=== PATIENT | female | born 1965 | race Caucasian/White ===

== ENCOUNTER → 2016-04-05 | Outpatient (CLI) | payer BC ==
[~2016-04-05] MED LIST: ALBUAER19 INH; ALPR-411 PO; BUTA1CAP17 PO; CALC8.5C PO; CLR10 PO; CNC/18 PO; DICL1GEL28 TOP; ETOD500T95 PO; FLVHFA44 INH; GADAVIST IV PRN; HYDR-4079 PO; HYDR25TA4 PO; MELA1TAB12 PO; MILN50TA PO; MONT1TAB3 PO; MULT-506 PO; NITR100C4 PO; NXM/40 PO; POLY335025 PO; PREG100C PO; PROB1CAP32 PO; PSEU60TA52 PO; RANI1TAB77 PO; RTL20 PO; SPIR25TA PO; SUMA6KIT INJ; TAMO20TA47 PO; TIZA4CAP PO; TOPI100T34 PO; TRAM-10 PO; VENL150C56 PO; ZNTT/150 PO
--- NOTE | 2016-04-08 15:00 | MAMMOGRAPHY REPORT ---
BREAST MRI OF BOTH BREASTS : 04/05/2016 CLINICAL HISTORY: History of right breast cancer status post bilateral mastectomies with implant rec onstruction. COMPARISON: Comparison is made to exams dated: 01/18/2015 MRI biopsy, 01/11/2015 mammogram, 5 mammogram, 12/09/2014 mammogram, 11/29/2013 mammogram, and 11/06/2012 mammogram - [facility]. Abdominal ultrasound dated 02/23/2016. Technique: The patient was placed prone in a dedicated breast imaging coil. Precontrast axial T1-we ighted, axial and sagittal T2-weighted fat saturation, axial and sagittal T2 STIR saturation, and ax ial T1-weighted fat saturation images were obtained. After the administration of 7 mL of Gadavist IV contrast, sequential T1-weighted fat saturation images were obtained. Subtraction images were obta ined of the dynamic contrast enhanced sequences, and 3-D reformations were performed. The Shake was used for kinetic analysis. Findings: There is no background parenchymal enhancement bilaterally. There are postsurgical changes from michael ateral mastectomy with silicone implant reconstruction. Bilateral silicone implants are intact with out evidence of intracapsular or extracapsular rupture. There are no suspicious enhancing masses or other suspicious enhancement within either reconstructed breast. There is no evidence of axillary adenopathy. The chest wall structures are negative. There is a 3. 2 x 4 cm circumscribed homogeneously T2 hyperintense, nonenhancing mass within the lateral aspect of the liver (series 8 image 46 and series 901 image 73). This is not well evaluated on this exam, bu t likely corresponds with one of the echogenic lesions seen on the 03/04/2016 ultrasound exam which had the ultrasound appearance of a hemangioma. IMPRESSION: ACR BI-RADS CATEGORY 2: BENIGN Status post bilateral mastectomy with silicone implant reconstruction. No MRI evidence of malignanc y in either reconstructed breast. Luciana Marquez M.D. /:04/06/2016 09:56:03 Branch Rental Manager: information technology auditor, [facility] letter sent: Normal 1/2 BI-RADS Code: ACR BI-RADS Category 2: Benign
== END | disposition home or self-care (01) ==
LOC: C.MRI 10:06
PROVIDERS: ATTEND Internal Medicine Hematology
DX: C50.411 Malignant neoplasm of upper-outer quadrant of right female breast (principal); Z98.82 Breast implant status

== ENCOUNTER → 2016-05-09 | Day surgery (SDC) | payer BC ==
[~2016-05-09] VITALS: Ht 172.7 cm; Wt 66.3 kg
[~2016-05-09] MED LIST changes: -GADAVIST IV PRN; -TAMO20TA47 PO
[2016-05-09 12:23] VITALS: Ht 172.7 cm; Wt 66.3 kg
[2016-05-09 12:27] VITALS: BP 104/63; PULSE 108
[2016-05-09 13:30] VITALS: BP 97/52; PULSE 87; O2SAT 98
--- NOTE | 2016-05-09 16:56 | OPERATIVE REPORT ---
DATE OF OPERATION: 05/09/2016 INDICATIONS FOR TILT TESTING: Orthostatic symptoms. HISTORY OF PRESENT ILLNESS: This is a 51-year-old woman who has a history of fibromyalgia, migraine headaches and intermittent postural lightheadedness and near syncope. She may have had a syncopal event several years ago. She is brought to the laboratory for tilt testing. DESCRIPTION OF PROCEDURE: After obtaining informed consent for the procedure, she was placed on the tilt test table and remained there for 15 minutes. At the end of that equilibration time, the head of the table was elevated to a 70 degree upright tilt. She remained there are only for about 3 minutes before becoming very symptomatic and the table was placed supine. During the tilt test, continuous pulse oximetry and electrocardiographic recordings were made, noninvasive blood pressure recordings were performed at intervals. FINDINGS: After the 15-minute equilibration period, her baseline blood pressure supine was 104/68, heart rate 89 and oxygen saturation 100%. Immediately on obtaining an upright tilt position, her blood pressure was 67/54, heart rate was 103 and pulse oximetry was 100%. After 1 minute, her blood pressure was 74/57, her heart rate was 119 and oxygen saturation was 100. She was feeling short of breath and having palpitations. Shortly thereafter, her symptoms became much worse and she felt as though she was going to pass out; therefore the head of the table was placed supine. Of note, the blood pressure could not easily be obtained at that point. Immediately on obtaining the supine position, the blood pressure was 124/88, heart rate was 86 and oxygen saturation 100%. IMPRESSION: Orthostatic hypotension with an immediate drop of nearly 40 mmHg systolic and a rebound of about 50 mmHg systolic when placed back supine. The heart rate also increased by about 30 beats per minute between new supine heart rate of 89 and her 1 minute heart rate of 119, her heart rate dropped back to 86 beats per minute when being placed supine. AMI
== END | disposition home or self-care (01) ==
LOC: C.CATH 12:06
PROVIDERS: ATTEND Internal Medicine Cardiovascular Disease
DX: R55 Syncope and collapse (principal); I95.1 Orthostatic hypotension; M79.7 Fibromyalgia; G43.909 Migraine, unspecified, not intractable, without status migrainosus

== ENCOUNTER → 2016-05-30 | Day surgery (SDC) | payer BC ==
[2016-05-16 15:13] VITALS: Ht 172.7 cm; Wt 65.9 kg
[~2016-05-30] VITALS: Ht 172.7 cm; Wt 65.9 kg
[~2016-05-30] MED LIST changes: +LIDOCAINE HCL 2% 2 ML VIAL (20MG/ML) ONE; -NITR100C4 PO; +PROPOFOL IV EMULSION 10 MG/ML 20 ML VIAL IV ONE
--- NOTE | 2016-05-30 15:53 | Endo History and Physical ---
History & Physical Date of Service: May 30, 2016. Chief Complaint: rectal bleeding Referring Physician: Dr. Ingrid Blanchard History of Present Illness 51 yo CF who presents for Colonoscopy secondary to rectal bleeding. Past Medical History Asthma, Anxiety, Reflux, Cancer, Depression Past Surgical History Hx Cardiac Surgery: No Hx Internal Defibrillator: No Hx Pacemaker: No Hx Abdominal Surgery: Yes (DERMOID CYST REMOVAL FROM RT OVARY) Hx of Implantable Prosthesis: Yes (BLT BREAST IMPLANTS) Hx Post-Op Nausea and Vomiting: No Hx Cancer Surgery: Yes (BLT MASTECTOMY WITH IMPLANT BASED RECONSTRUCTION) Hx Thoracic Surgery: No Hx Orthopedic: Yes (LOW BACK SURGERY S1-L3 REPLACED) Hx Urinary Tract Surgery: No Family History Colon CA, Polyp Social History Smoking Status: Never Smoker Hx Substance Use: No Hx Alcohol Use: No Allergies Coded Allergies: Dried Fruit (Verified Allergy, Mild, R/T SULFitES-MIGRAINES,NAUSEA AND VOMITING, 05/16/16) Latex1 -Allergic Contact Dermititis (Verified Allergy, Mild, SKIN IRRITATION, 05/16/16) Sulfites (Verified Allergy, Mild, MIGRAINES, N/V, FLUID RETENTION, 05/16/16) ALL VINEGARS Vinegar (Verified Allergy, Unknown, ALLERGY TO BALSAMIC VINEGAR-SULFITES- MIGRAINES,N AND V, 05/16/16) Sulfa Antibiotics (Verified Adverse Reaction, Intermediate, Acute Kidney Failure, 05/16/16) "SULFA = claims caused kidney issues=beginning of failure" Current Medications Reported Home Medications Medications Dose Route/Sig Max Daily Dose Days Date Category Dose Instructions Topamax (Topiramate) 100 Mg Tab 2 Tabs PO BID 05/16/16 Reported Nexium (Esomeprazole Magnesium) 40 Mg Capcr 40 Mg PO QAM 02/26/16 Reported Ritalin (Methylphenidate HCl) 20 Mg Tab 20 Mg PO BID 01/16/16 Reported Xanax (Alprazolam) 0.5 Mg Tab 0.5-1 Mg PO BID PRN 01/16/16 Reported Zantac (Ranitidine HCl) 150 Mg Tab 300 Mg PO HS 11/06/15 Reported Effexor Extended Rel (Venlafaxine Hcl) 150 Mg Cap 150 Mg PO BID 06/21/15 Reported Ranitidine [address] (Ranitidine HCl) 150 Mg Tab 150 Mg PO QAM 06/21/15 Reported Pseudoephedrine Hcl 60 Mg Tab 120 Mg PO DAILY PRN 03/02/15 Reported [place] 10MG/325MG (Acetaminophen/Hydrocodone Bitart) Tab 1 Tab PO DAILY PRN 03/02/15 Reported PRN PAIN Etodolac 500 Mg Tab 1 Tab PO BID 03/02/15 Reported Gnp Melatonin Maximum Str (Melatonin) 5 Mg Tab 5 Mg PO HS 01/30/15 Reported Lyrica (Pregabalin) 100 Mg Cap 100 Mg PO TID 01/30/15 Reported Viactiv (Calcium W/ Vitamins D & K) 1 Chw Chw 1 Tab PO BID 12/27/14 Reported Hctz (Hydrochlorothiazide) 25 Mg Tab 25 Mg PO QPM PRN 12/27/14 Reported Fioricet (Sznctsysyt-Jmwfbvwrcvemv-Kswtg) 1 Cap Cap 1-2 Tab PO Q4 PRN 12/27/14 Reported DOSE-50/325/40 MG-NO MORE THAN 3 DAYS PER WEEK Flovent Hfa (Fluticasone Propionate) 120 Puffs/5280 Mcg Aero 2 Puffs INH BID PRN 12/27/14 Reported Voltaren 1% Top Gel (Diclofenac Sodium) Gel 1 Appln TOP QID PRN 10/20/13 Reported Miralax (Polyethylene Glycol 3350) 1 Pow Pow 1 Dose PO TID 10/07/13 Reported USUALLY USES 1/3 A DOSE TID Singulair (Montelukast Sodium) 10 Mg Tab 10 Mg PO QPM 10/06/13 Reported Claritin (Loratadine) 10 Mg Tab 10 Mg PO QAM PRN 10/06/13 Reported Aldactone (Spironolactone) 25 Mg Tab 50 Mg PO QAM PRN 10/05/13 Reported Probiotic Colon Support (Probiotic Product) 1 Cap Cap 1 Tab PO BID 03/31/13 Reported Ventolin Inhaler (Albuterol) Aers 2 Puffs INH QID PRN 12/08/12 Reported Ultram (Tramadol HCl) 50 Mg Tab 1-2 Tabs PO TID PRN 04/16/12 Reported Zanaflex (Tizanidine HCl) 4 Mg Cap 4 Mg PO TID PRN 12/11/11 Reported Imitrex Statdose (Sumatriptan Succinate) 6 Mg/0.5 Ml Inj 0.5 Ml INJ PRN PRN 11/11/11 Reported Multivitamin (Multivitamins) Tab 1 Tab PO QAM 03/25/08 Reported Vital Signs Weight (Kilograms): 65.91 Height (Feet): 5 Height (Inches): 8 Date Time Temp Pulse Resp B/P Pulse Ox O2 Delivery O2 Flow Rate FiO2 05/30/16 15:32 37 91 20 111/62 100 Room Air Physical Exam General Appearance: WD/WN, no apparent distress Respiratory/Chest: Auscultation: breath sounds normal Cardiovascular: Heart Auscultation: RRR Abdomen: Bowel Sounds: normal Inspection & Palpation: soft, non-distended, no tenderness, guarding & rebound Assessment and Plan Assessment: 51 yo CF who presents for Colonoscopy secondary to rectal bleeding. Plan: Proceed with Colonoscopy.
--- NOTE | 2016-05-30 16:37 | Discharge Instructions ---
Endoscopy Patient Instructions Date / Procedure(s) Performed May 30, 2016. Colonoscopy Allergy Information Coded Allergies: Dried Fruit (Verified Allergy, Mild, R/T SULFitES-MIGRAINES,NAUSEA AND VOMITING, 05/16/16) Latex1 -Allergic Contact Dermititis (Verified Allergy, Mild, SKIN IRRITATION, 05/16/16) Sulfites (Verified Allergy, Mild, MIGRAINES, N/V, FLUID RETENTION, 05/16/16) ALL VINEGARS Vinegar (Verified Allergy, Unknown, ALLERGY TO BALSAMIC VINEGAR-SULFITES- MIGRAINES,N AND V, 05/16/16) Sulfa Antibiotics (Verified Adverse Reaction, Intermediate, Acute Kidney Failure, 05/16/16) "SULFA = claims caused kidney issues=beginning of failure" Discharge Date / Findings May 30, 2016. Melanosis coli Internal hemorrhoids Medication Instructions OK to resume all medications today as prescribed. Reported Home Medications Medications Dose Route/Sig Max Daily Dose Days Date Category Dose Instructions Topamax (Topiramate) 100 Mg Tab 2 Tabs PO BID 05/16/16 Reported Nexium (Esomeprazole Magnesium) 40 Mg Capcr 40 Mg PO QAM 02/26/16 Reported Ritalin (Methylphenidate HCl) 20 Mg Tab 20 Mg PO BID 01/16/16 Reported Xanax (Alprazolam) 0.5 Mg Tab 0.5-1 Mg PO BID PRN 01/16/16 Reported Zantac (Ranitidine HCl) 150 Mg Tab 300 Mg PO HS 11/06/15 Reported Effexor Extended Rel (Venlafaxine Hcl) 150 Mg Cap 150 Mg PO BID 06/21/15 Reported Ranitidine [address] (Ranitidine HCl) 150 Mg Tab 150 Mg PO QAM 06/21/15 Reported Pseudoephedrine Hcl 60 Mg Tab 120 Mg PO DAILY PRN 03/02/15 Reported [place] 10MG/325MG (Acetaminophen/Hydrocodone Bitart) Tab 1 Tab PO DAILY PRN 03/02/15 Reported PRN PAIN Etodolac 500 Mg Tab 1 Tab PO BID 03/02/15 Reported Gnp Melatonin Maximum Str (Melatonin) 5 Mg Tab 5 Mg PO HS 01/30/15 Reported Lyrica (Pregabalin) 100 Mg Cap 100 Mg PO TID 01/30/15 Reported Viactiv (Calcium W/ Vitamins D & K) 1 Chw Chw 1 Tab PO BID 12/27/14 Reported Hctz (Hydrochlorothiazide) 25 Mg Tab 25 Mg PO QPM PRN 12/27/14 Reported Fioricet (Mgnqrthwkr-Hcmvbsdiaslkr-Soguo) 1 Cap Cap 1-2 Tab PO Q4 PRN 12/27/14 Reported DOSE-50/325/40 MG-NO MORE THAN 3 DAYS PER WEEK Flovent Hfa (Fluticasone Propionate) 120 Puffs/5280 Mcg Aero 2 Puffs INH BID PRN 12/27/14 Reported Voltaren 1% Top Gel (Diclofenac Sodium) Gel 1 Appln TOP QID PRN 10/20/13 Reported Miralax (Polyethylene Glycol 3350) 1 Pow Pow 1 Dose PO TID 10/07/13 Reported USUALLY USES 1/3 A DOSE TID Singulair (Montelukast Sodium) 10 Mg Tab 10 Mg PO QPM 10/06/13 Reported Claritin (Loratadine) 10 Mg Tab 10 Mg PO QAM PRN 10/06/13 Reported Aldactone (Spironolactone) 25 Mg Tab 50 Mg PO QAM PRN 10/05/13 Reported Probiotic Colon Support (Probiotic Product) 1 Cap Cap 1 Tab PO BID 03/31/13 Reported Ventolin Inhaler (Albuterol) Aers 2 Puffs INH QID PRN 12/08/12 Reported Ultram (Tramadol HCl) 50 Mg Tab 1-2 Tabs PO TID PRN 04/16/12 Reported Zanaflex (Tizanidine HCl) 4 Mg Cap 4 Mg PO TID PRN 12/11/11 Reported Imitrex Statdose (Sumatriptan Succinate) 6 Mg/0.5 Ml Inj 0.5 Ml INJ PRN PRN 11/11/11 Reported Multivitamin (Multivitamins) Tab 1 Tab PO QAM 03/25/08 Reported Provider Instructions Activity Restrictions - No exercising or heavy lifting for 24 hours. - Do not drink alcohol the day of the procedure. - Do not drive a car or operate machinery until the day after the procedure. - Do not make any important decisions or sign important papers in 24 hours after the procedure. Following Day: - Return to full activity which may include returning to work/school. Diet Start your diet with liquids and light foods (jello, soup, juice, toast). Then eat your usual diet if not nauseated. Treatment For Common After Affects For mild abdominal pain, bloating, or excessive gas: - Rest - Eat lightly - Lie on right side Follow-Up Information Follow-up with Dr. Ingrid Blanchard as scheduled Anesthesia Information What You Should Know You have had a procedure that required some medicine to reduce anxiety and discomfort. This treatment is called moderate sedation. After receiving the treatment, you may be sleepy, but you will be able to breathe on your own. The effects of the treatment may last for several hours. Follow these instructions along with Activity/Diet recommendations noted above: * Do NOT do anything where dizziness or clumsiness would be dangerous. * Rest quietly at home today, then you can be up and about tomorrow. * Have a responsible person stay with you the rest of today. * You may have had an I.V. today. If so, you may take the dressing off later today. Recommendations Call your doctor if: * Trouble breathing * Continuous vomiting for more than 24 hours * Temperature above 101 degrees * Severe abdominal pain or bloating * Pain not relieved by pain medicine ordered * There is increased drainage or redness from any incision * A large amount of rectal bleeding greater than 2-3 tablespoons. (If you had a polyp/s removed or have hemorrhoids, a small amount of blood - from the rectum is to be expected.) * You have any unanswered questions or concerns. IN THE EVENT OF A SERIOUS EMERGENCY, GO TO THE NEAREST EMERGENCY ROOM Your discharge instructions were prepared by provider Geovani Kumar. Patient Instructions Signature Page Nanci Witt Patient (or Guardian) Signature/Date: I have read and understand the instructions given to me by my caregivers. Caregiver/RN/Doctor Signature/Date: The above-named patient and/or guardian has received patient instructions on this date. + Original Patient Signature Page (only) stays with chart. Please make copy for patient.
--- NOTE | 2016-05-30 16:57 | GI REPORT ---
Procedure Date: 05/30/2016 3:49 PM Procedure: Colonoscopy Indications: Rectal bleeding Medicines: Monitored Anesthesia Care Complications: No immediate complications. Estimated Blood Loss: Estimated blood loss: none. Procedure: Pre-Anesthesia Assessment: - Prior to the procedure, a History and Physical was performed, and patient medications and allergies were reviewed. The patient's tolerance of previous anesthesia was also reviewed. The risks and benefits of the procedure and the sedation options and risks were discussed with the patient. All questions were answered, and informed consent was obtained. Prior Anticoagulants: The patient has taken no previous anticoagulant or antiplatelet agents. ASA Grade Assessment: II - A patient with mild systemic disease. After reviewing the risks and benefits, the patient was deemed in satisfactory condition to undergo the procedure. After I obtained informed consent, the scope was passed under direct vision. Throughout the procedure, the patient's blood pressure, pulse, and oxygen saturations were monitored continuously. The scope was introduced through the anus and advanced to the terminal ileum. The colonoscopy was performed without difficulty. The patient tolerated the procedure well. The quality of the bowel preparation was good. The terminal ileum, ileocecal valve, appendiceal orifice, and rectum were photographed. Findings: A scattered area of mild melanosis was found in the entire colon. Non-bleeding internal hemorrhoids were found during retroflexion. The hemorrhoids were small. Impression: - Melanosis in the colon. - Non-bleeding internal hemorrhoids. - No specimens collected. Recommendation: - Resume previous diet. - Continue present medications. - Repeat colonoscopy in 10 years for surveillance. - Return to primary care physician as previously scheduled. Geovani Kumar, 05/30/2016 4:57:11 PM This report has been signed electronically. Note Initiated On: 05/30/2016 3:49 PM I attest to the content of the Intraoperative Record and orders documented therein, exceptions below
[2016-05-30 17:04] VITALS: BP 105/62; PULSE 82; O2SAT 100
--- NOTE | 2016-05-30 17:13 | Anesthesiology Progress Note ---
Anesthesia Post Op Note Date & Time May 30, 2016 at 17:13 Vital Signs Pain Intensity: 0 Vital Signs Past 12 Hours Date Time Temp Pulse Resp B/P Pulse Ox O2 Delivery O2 Flow Rate FiO2 05/30/16 17:04 82 18 105/62 100 Room Air 05/30/16 16:56 82 18 85/56 100 Room Air 05/30/16 16:41 90 16 98/57 100 Room Air 05/30/16 16:32 88 16 98/54 100 Room Air 05/30/16 15:32 37 91 20 111/62 100 Room Air Notes Mental Status: alert / awake / arousable, participated in evaluation Pt Amnestic to Procedure: Yes Nausea / Vomiting: adequately controlled Pain: adequately controlled Airway Patency, RR, SpO2: stable & adequate BP & HR: stable & adequate Hydration State: stable & adequate Anesthetic Complications: no major complications apparent
== END | disposition home or self-care (01) ==
LOC: C.GI 14:26
PROVIDERS: ATTEND Internal Medicine
DX: K62.5 Hemorrhage of anus and rectum (principal); K63.89 Other specified diseases of intestine; K64.8 Other hemorrhoids; K21.9 Gastro-esophageal reflux disease without esophagitis; Z80.0 Family history of malignant neoplasm of digestive organs; J45.909 Unspecified asthma, uncomplicated; F41.9 Anxiety disorder, unspecified; F32.9 Major depressive disorder, single episode, unspecified; Z88.2 Allergy status to sulfonamides; Z88.8 Allergy status to other drugs, medicaments and biological substances; Z90.10 Acquired absence of unspecified breast and nipple

== ENCOUNTER → 2016-06-14 | Outpatient (CLI) | payer BC ==
[~2016-06-14] MED LIST changes: +CETI10TA84 PO; +DULO60CA44 PO; +FEXO1TAB49 PO; -LIDOCAINE HCL 2% 2 ML VIAL (20MG/ML) ONE; -PROPOFOL IV EMULSION 10 MG/ML 20 ML VIAL IV ONE; +VNTHFA/IN INH
[2016-06-14 18:20] LABS: BLOOD UREA NITROGEN 16 mg/dl (7-18); BUN/CREATININE RATIO 21.2 (10-20); CALCIUM 8.6 mg/dl (8.5-10.1); CARBON DIOXIDE 31 mmol/L (21-32); CHLORIDE 104 mmol/L (98-107); CREATININE 0.76 mg/dl (0.60-1.20); GLUCOSE 102 mg/dl (70-99); POTASSIUM 3.6 mmol/L (3.5-5.1); SODIUM 140 mmol/L (136-145)
[2016-06-14 18:33] LABS: THYROID STIMULATING HORMONE 1.8 uIu/ml (0.300-4.500)
== END | disposition home or self-care (01) ==
LOC: C.LAB1850 16:08
PROVIDERS: ATTEND Family Medicine
DX: F32.9 Major depressive disorder, single episode, unspecified (principal); R53.83 Other fatigue

== ENCOUNTER → 2016-08-15 | Outpatient (CLI) | payer BC ==
[~2016-08-15] MED LIST changes: -RTL20 PO
== END | disposition home or self-care (01) ==
LOC: C.PAPS 09:43
PROVIDERS: ATTEND Obstetrics & Gynecology
DX: Z01.419 Encounter for gynecological examination (general) (routine) without abnormal findings (principal); Z11.51 Encounter for screening for human papillomavirus (HPV)

== ENCOUNTER → 2016-10-08 | Outpatient (CLI) | payer BC ==
[~2016-10-08] MED LIST changes: -CETI10TA84 PO; -DULO60CA44 PO; -FEXO1TAB49 PO; -VNTHFA/IN INH
[2016-10-08 16:48] LABS: BASO % 0.6 %; BASO ABS # 0.02 K/uL (0-0.2); COMPLETE YES; EOS % 0.6 %; HEMATOCRIT 39.5 % (37-47); LYMPH % 34.1 %; LYMPH ABS # 1.23 K/uL (1.2-3.4); MEAN CORPUSCULAR HEMOGLOBIN 28.7 pg (25-34); MEAN CORPUSCULAR HGB CONC 32.7 g/dl (32-36); MONO % 11.4 %; NEUT % 53.3 %; PLATELET COUNT 235 K/uL (130-400); RED BLOOD COUNT 4.49 M/uL (4.2-5.4); WHITE BLOOD COUNT 3.61 K/uL (4.8-10.8)
[2016-10-08 17:14] LABS: ALT/SGPT 25 U/L (12-78); BLOOD UREA NITROGEN 15 mg/dl (7-18); BUN/CREATININE RATIO 17.5 (10-20); CARBON DIOXIDE 29 mmol/L (21-32); CHLORIDE 104 mmol/L (98-107); CREATININE 0.88 mg/dl (0.60-1.20); GLUCOSE 97 mg/dl (70-99); POTASSIUM 3.1 mmol/L (3.5-5.1); SODIUM 140 mmol/L (136-145)
[2016-10-08 17:25] LABS: ALB/GLOB RATIO 1.2 (0.9-2); ALKALINE PHOSPHATASE 55 U/L (45-117); AST/SGOT 18 U/L (15-37)
== END | disposition home or self-care (01) ==
LOC: C.LABBC 15:32
PROVIDERS: ATTEND Psychiatry & Neurology Neurology
DX: C50.911 Malignant neoplasm of unspecified site of right female breast (principal)

== ENCOUNTER 2017-02-12 18:13 | Emergency (ER) | payer BC ==
[~2017-02-12] VITALS: Ht 172.7 cm; Wt 68.2 kg
[~2017-02-12 18:13] MED LIST changes: +CETI10TA84 PO; -CLR10 PO; +DULO60CA44 PO; +FEXO1TAB49 PO; -MILN50TA PO; -VENL150C56 PO
[2017-02-12 18:22] VITALS: BP 109/75; PULSE 84; TEMP 36.4; O2SAT 100; Ht 172.7 cm; Wt 68.2 kg
[2017-02-12] MEDS ORDERED: VNTHFA/IN INH (18:56)
[2017-02-12] MEDS ORDERED: TRAMADOL HCL 50 MG TAB PO STA (19:20)
[2017-02-12] MEDS ORDERED: ACETAMINOPHEN 500 MG TAB PO STA (19:20)
[2017-02-12] MEDS ORDERED: DIPHTHERIA/TETANUS/PERTUSSIS 0.5 ML SYR/VIAL IM. ONE (20:00)
--- NOTE | 2017-02-12 20:00 | DIAGNOSTIC IMAGING REPORT ---
HEAD WITHOUT CONTRAST (CT) CLINICAL HISTORY: 51 years-old Female with CHI/R facial/neck pain. Acute posttraumatic head pain TECHNIQUE: Multiple axial CT images of the head were obtained without contrast. A dose lowering technique was utilized adhering to the principles of ALARA. CT DOSE: 916.45 mGy.cm COMPARISON: CT cervical spine and maxillofacial study of same day. FINDINGS: No acute intracranial hemorrhage, midline shift, mass, large territorial ischemia or abnormal extra-axial collection. The calvarium is intact. The paranasal sinuses, mastoid air cells, and middle ear cavities are clear. IMPRESSION: No acute intracranial abnormality. The above report was generated using voice recognition software. It may contain grammatical, syntax or spelling errors. Electronically signed by: Singh Pérez M.D. 02/12/2017 7:59 PM Dictated Date/Time: 02/12/2017 7:57 PM
--- NOTE | 2017-02-12 20:06 | DIAGNOSTIC IMAGING REPORT ---
CERVICAL SPINE W/O CLINICAL HISTORY: 51 years-old Female with CHI/R facial/neck pain. Acute neck and facial pain status post fall COMPARISON: CT head and maxillofacial study of same day. TECHNIQUE: Multiple axial CT images of the cervical spine were obtained without contrast. A dose lowering technique was utilized adhering to the principles of ALARA. FINDINGS: Mastoid air cells are clear. No acute cervical spine fracture or subluxation. Moderate intervertebral disc space narrowing with endplate spurring is noted at C5-C6. Mild multilevel facet arthrosis. Findings most pronounced at C2-C3 on the left and C6-C7 on the left. No high-grade central canal or foraminal narrowing identified. The soft tissues are unremarkable. No pneumothorax. Groundglass 5 x 3 mm nodule of the right lung apex is seen on image 97 series 4. IMPRESSION: 1. No acute cervical spine fracture or subluxation. 2. Moderate intervertebral disc space narrowing with endplate spurring at C5-C6. 3. 5 x 3 mm groundglass nodule of the right lung apex. This could be further evaluated with a nonemergent noncontrast CT of the chest. The above report was generated using voice recognition software. It may contain grammatical, syntax or spelling errors. Electronically signed by: Singh Pérez M.D. 02/12/2017 8:04 PM Dictated Date/Time: 02/12/2017 8:00 PM
--- NOTE | 2017-02-12 20:10 | DIAGNOSTIC IMAGING REPORT ---
FACIAL BONES-MXILLOFAC WITHOUT CLINICAL HISTORY: 51 years-old Female presenting with CHI/R facial/neck pain. Acute facial pain status post fall COMPARISON STUDY: CT head and cervical spine studies of same day TECHNIQUE: High-resolution CT scan of the facial bones is performed. Images are reviewed in the axial, sagittal, and coronal planes. IV contrast was not administered for this examination. A dose lowering technique was utilized adhering to the principles of ALARA. FINDINGS: There is no evidence of facial bone fracture. The bony orbits are intact and the orbital contents are within normal limits. The zygomatic arches, nasal bones, and pterygoid plates are preserved. The maxilla and mandible are intact. The mastoid air cells are clear. Mild mucosal thickening of the ethmoid air cells. The imaged calvarium and upper cervical spine are within normal limits. Partially imaged brain parenchyma is within normal limits. Intervertebral disc space narrowing at C5-C6 is moderate. Mild right cheek soft tissue swelling. Groundglass nodule of the right lung apex measures 5 x 3 mm. IMPRESSION: 1. No acute facial bone fracture or dislocation. 2. Mild right cheek soft tissue swelling. The above report was generated using voice recognition software. It may contain grammatical, syntax or spelling errors. Electronically signed by: Singh Pérez M.D. 02/12/2017 8:08 PM Dictated Date/Time: 02/12/2017 8:05 PM
--- NOTE | 2017-02-12 21:12 | DIAGNOSTIC IMAGING REPORT ---
R ELBOW MIN 3 VIEWS ROUTINE HISTORY: 51 years-old Female R elbow pain acute right-sided elbow pain COMPARISON: None available TECHNIQUE: 3 views of the right elbow FINDINGS: No acute fracture, dislocation or significant degenerative changes. No opaque foreign body or large joint effusion. There is minimal soft tissue swelling along the dorsal elbow. IMPRESSION: Minimal soft tissue swelling without acute bony abnormality. The above report was generated using voice recognition software. It may contain grammatical, syntax or spelling errors. Electronically signed by: Singh Pérez M.D. 02/12/2017 9:10 PM Dictated Date/Time: 02/12/2017 9:10 PM
--- NOTE | 2017-02-13 00:09 | EMERGENCY ROOM VISIT NOTE ---
History First contact with patient: 18:59 Chief Complaint: FALL Stated Complaint: SEVERE FALL;CUTS ON FACE;POSS CONCUSSION History of Present Illness The patient is a 51 year old female who presents to the Emergency Room with complaints of injuries after she tripped over her dog and fell in her living room this evening. The patient reports that the room was dark and did not realize that her dog was laying on the floor. She is concerned mostly about an injury to the right side of her head, complaining of a headache, neck pain, facial pain, right ear pain, right shoulder, right elbow and bilateral knee pain. The patient denies any loss of consciousness. The patient initially believes that her tetanus immunization is up-to-date. She rates her discomfort a 9 out of 10. Review of Systems 10 system review was performed and was negative except for pertinent positives and negatives as indicated in history of present illness Past Medical/Surgical History Medical Problems: (1) Breast CA (2) Chronic migraine (3) Fibromyalgia (4) Irritable bowel syndrome (5) Orthostatic hypotension Surgical Problems: (1) History of breast reconstruction (2) History of mastectomy, total Family History FH: cancer FH: diabetes mellitus FH: gallbladder disease FH: heart disease FH: hypertension FH: kidney disease FH: seizures Social History Smoking Status: Never Smoker Alcohol Use: occasionally Marital Status: Housing Status: lives with family Occupation Status: unemployed Current/Historical Medications Scheduled Calcium W/ Vitamins D & K (Viactiv), 1 TAB PO BID Cetirizine (Zyrtec), 10 MG PO DAILY Duloxetine Hcl (Cymbalta), 60 MG PO BID Esomeprazole Magnesium (Nexium), 40 MG PO BID Etodolac (Etodolac), 500 MG PO BID Fexofenadine Hcl (Alice Allergy), 180 MG PO DAILY Melatonin (Gnp Melatonin Maximum Str), 5 MG PO HS Methylphenidate Hcl (Concerta), 1 TAB PO QAM Montelukast Sodium (Singulair), 10 MG PO QPM Multivitamin (Multivitamin), 1 TAB PO QAM Polyethylene Glycol 3350 (Miralax), 1 DOSE PO TID Pregabalin (Lyrica), 100 MG PO BID Probiotic Product (Probiotic Colon Support), 1 TAB PO BID Ranitidine (Zantac), 300 MG PO HS Ranitidine HCl (Ranitidine [address]), 150 MG PO QAM Topiramate (Topamax), 2 TABS PO BID Scheduled PRN Albuterol Hfa (Ventolin Hfa), 2-4 PUFFS INH Q6H PRN for SOB/Wheezing Alprazolam (Xanax), 0.5-1 MG PO BID PRN for Anxiety Qotalxwpdn-Fbhxnvsgozvhr-Rvqeg (Fioricet), 1-2 TAB PO Q4 PRN for Pain Fluticasone Propionate (Flovent Hfa), 2 PUFFS INH BID PRN for Shortness of Breath Hydrochlorothiazide (Hctz), 25 MG PO QPM PRN for FLUID RETENTION Hydrocodone/Acetaminophen 10MG/325MG ([place] 10MG/325MG), 1 TAB PO DAILY PRN for Pain Pseudoephedrine Hcl (Pseudoephedrine Hcl), 120 MG PO DAILY PRN for Nasal Congestion Spironolactone (Aldactone), 50 MG PO QAM PRN for FLUID RETENTION Sumatriptan Succinate (Imitrex Statdose), 0.5 ML INJ PRN PRN for UD Tizanidine (Zanaflex), 4 MG PO TID PRN for Muscle Spasms Tramadol (Ultram), 1-2 TABS PO TID PRN for Pain Physical Exam Vital Signs Date Time Temp Pulse Resp B/P (MAP) Pulse Ox O2 Delivery O2 Flow Rate FiO2 02/12/17 18:22 36.4 84 18 109/75 100 Room Air Physical Exam CONSTITUTIONAL: Healthy and well nourished. Alert and oriented X 3 with positive affect. GCS 15. Patient appears in mild discomfort. HEENT: Examination shows superficial abrasions to the right lateral eyebrow and ear helix. She has edema and ecchymosis of the right temporal and zygomatic region. Pupils equal, round and reactive. No subconjunctival hemorrhage, epistaxis, hemotympanum, raccoon's eyes or Stark sign. OROPHARYNX: No dental trauma or other intraoral lacerations noted. NECK: Left lateral gaze of the neck causes discomfort over the right medial scapular border. She otherwise has no focal tenderness through the central cervical spine. RESPIRATORY: Clear to auscultation bilaterally with no wheezing, crackles, rhonchi or stridor. CARDIOVASCULAR: Regular rate and rhythm with no murmurs, rubs or gallops. MUSCULOSKELETAL: Examination shows mild tenderness to palpation of the right scapula, right posterior elbow and right thumb. She otherwise has full range of motion of these areas without significant discomfort. No focal tenderness to palpation through the ribs. Examination shows superficial abrasions to bilateral anterior knees. She otherwise and relates without antalgic gait. Distal pulses are intact. INTEGUMENTARY: No rash or other significant dermatologic conditions noted. NEUROLOGIC: Upper and lower extremities are sensory intact. Medical Decision & Procedures ER Provider Diagnostic Interpretation: Noncontrast CT of the facial bones, head and cervical spine do not show any evidence for acute fractures or intracranial bleed. An incidental groundglass 5 x 3 mm right apical lung nodule is noted. My interpretation of right elbow x-rays does not show any obvious fractures or dislocation. Radiologist reports were reviewed. Medications Administered Medications (Trade) Dose Ordered Sig/Bert Route Start Time Stop Time Status Last Admin Dose Admin Tramadol HCl (Ultram Tab) 50 mg ONE STAT PO 02/12/17 19:20 02/12/17 19:23 DC 02/12/17 19:36 50 MG Acetaminophen (Tylenol Tab) 1,000 mg NOW STAT PO 02/12/17 19:20 02/12/17 19:23 DC 02/12/17 19:37 1,000 MG Diphtheria/ Pertussis/Tetanus Vacc (Adacel Inj) 0.5 ml ONCE ONCE IM. 02/12/17 20:00 02/12/17 20:01 DC 02/12/17 20:48 0.5 ML ED Course Patient history and physical exam were performed. Nurse's notes were reviewed. Vital signs were reviewed and were normal. The patient was administered Tylenol 1 g and Ultram 50 mg for pain. Noncontrast CT of the head, facial bones and cervical spine were normal. An incidental right apical 5 x 3 mm lung nodule was noted. It is noted that the patient has a history of breast cancer, status post mastectomy with reconstruction. I did encourage her to follow-up with her oncologist for radiologic comparison with prior imaging. The patient reports that she has an upcoming appointment with her oncologist. Evaluation of all wounds does not show any need for primary closure with sutures. I did encourage the patient to keep all wounds clean and covered with an antibiotic ointment until they heal. Ice as needed to areas of discomfort. Ibuprofen and Tylenol in alternating fashion for baseline pain relief. The patient reports that she does have Ultram at home that she usually takes for fibromyalgia. The patient was provided a concussion handout. She was encouraged to follow-up with her PCP as needed for further management, returning to the emergency department for any progressively worsening focal symptoms. The patient was happy with plan of care, voiced understanding of all discharge instructions, and rated her discomfort a 3 out of 10 at the conclusion of my exam. Medical Decision [place] Drug Monitoring Program Search Results: patient reviewed within database, no issues identified Head Trauma GCS Score: 15 Medication Reconcilliation Current Medication List: was personally reviewed by me Blood Pressure Screening Patient's blood pressure: Normal blood pressure Impression Primary Impression: Concussion Additional Impressions: Contusion of multiple sites Fall from slip, trip, or stumble Nodule of apex of right lung Departure Information Referrals Nellie Morataya MD (PCP) Patient Instructions [facility] Problem Qualifiers Primary Impression: Concussion Encounter type: initial encounter Loss of consciousness presence/duration: without LOC Qualified Codes: S06.0X0A - Concussion without loss of consciousness, initial encounter Additional Impressions: Fall from slip, trip, or stumble Encounter type: initial encounter Qualified Codes: W01.0XXA - Fall on same level from slipping, tripping and stumbling without subsequent striking against object, initial encounter
== END 2017-02-12 21:40 | disposition home or self-care (01) ==
LOC: C.EDB 18:16 → C.EDD 21:40
DX: S06.0X0A Concussion without loss of consciousness, initial encounter (principal); W01.0XXA Fall on same level from slipping, tripping and stumbling without subsequent striking against object, initial encounter; S00.211A Abrasion of right eyelid and periocular area, initial encounter; S00.411A Abrasion of right ear, initial encounter; S80.211A Abrasion, right knee, initial encounter; S80.212A Abrasion, left knee, initial encounter; Y92.008 Other place in unspecified non-institutional (private) residence as the place of occurrence of the external cause; R91.1 Solitary pulmonary nodule; Z85.3 Personal history of malignant neoplasm of breast; Z79.899 Other long term (current) drug therapy; M79.7 Fibromyalgia; K58.9 Irritable bowel syndrome, unspecified; Z90.10 Acquired absence of unspecified breast and nipple; Z23 Encounter for immunization; Z80.9 Family history of malignant neoplasm, unspecified; Z83.3 Family history of diabetes mellitus; Z82.49 Family history of ischemic heart disease and other diseases of the circulatory system; Z84.1 Family history of disorders of kidney and ureter; Z82.0 Family history of epilepsy and other diseases of the nervous system

== ENCOUNTER → 2017-02-18 | Outpatient (CLI) | payer BC ==
[~2017-02-18] MED LIST changes: -ALBUAER19 INH; -DICL1GEL28 TOP; +OPTIRAY 320 IV PRN; +VNTHFA/IN INH
--- NOTE | 2017-02-18 13:48 | DIAGNOSTIC IMAGING REPORT ---
CT SCAN OF THE CHEST WITH IV CONTRAST CLINICAL HISTORY: Breast cancer. Right-sided pulmonary nodule. COMPARISON STUDY: Chest radiographs dated 10/21/2014. TECHNIQUE: Following the IV administration of 93 cc of Optiray 320, CT scan of the thorax was performed from the thoracic inlet to the upper abdomen. Images are reviewed in the axial, sagittal, and coronal planes. IV contrast was administered without complication. A dose lowering technique was utilized adhering to the principles of ALARA. CT DOSE: 222.73 mGy.cm FINDINGS: Thyroid: Imaged portions of the thyroid gland are normal in size and attenuation. Thoracic aorta: The thoracic aorta is normal in caliber and demonstrates standard 3-vessel arch anatomy. No dissection is seen. Pulmonary vasculature: The pulmonary trunk is normal in caliber. There are no filling defects identified in the central pulmonary vessels to indicate pulmonary embolus. Note that this examination was not protocoled for evaluation of the pulmonary arteries. Heart: The heart is normal in size and configuration, and without pericardial effusion. Lungs and pleural spaces: A fat-containing Bochdalek hernia is seen at the left lung base. No airspace consolidation or pleural effusion is identified. Scattered calcified granulomas are observed. The trachea and central airways are clear. No concerning pulmonary lesion is identified. Mediastinum: There is no mediastinal lymphadenopathy. Tatyana: Clear. Axillae: There is no axillary lymphadenopathy. Upper abdomen: A 4 cm cyst is seen in the right lobe of the liver. There is a 5.7 cm right lobe hepatic lesion which demonstrates peripheral nodular foci of discontinuous enhancement. Although incompletely characterized, the appearance is typical for a benign hemangioma. A 3.6 cm right renal cyst is partially imaged. Skeletal structures: No lytic or blastic bony lesions are seen. There is a healed left posterior eighth rib fracture. Soft tissues: There is evidence of bilateral mastectomy with bilateral breast implants. IMPRESSION: 1. There is no evidence of intrathoracic metastatic disease. 2. The lungs are clear. No concerning pulmonary lesion is seen. 3. A 5.7 cm right hepatic lobe lesion is incompletely characterized; however, the enhancement pattern is typical for a benign hemangioma. Electronically signed by: Lacho Castro M.D. 02/18/2017 1:46 PM Dictated Date/Time: 02/18/2017 1:39 PM
== END | disposition home or self-care (01) ==
LOC: C.CTS 13:14
PROVIDERS: ATTEND Internal Medicine Hematology
DX: C50.919 Malignant neoplasm of unspecified site of unspecified female breast (principal); R91.1 Solitary pulmonary nodule; K76.9 Liver disease, unspecified

== ENCOUNTER → 2017-03-31 | Outpatient (CLI) | payer OTHER ==
[~2017-03-31] MED LIST changes: -OPTIRAY 320 IV PRN; +PSEU60TA26 PO; -PSEU60TA52 PO
--- NOTE | 2017-03-31 16:10 | DIAGNOSTIC IMAGING REPORT ---
CHEST 2 VIEWS ROUTINE HISTORY: 51 years-old Female J45.909 Asthmatic [id number] [id number] acute bronchitis COMPARISON: CT chest 02/18/2017 TECHNIQUE: PA and lateral views of the chest FINDINGS: Cardiomediastinal and hilar silhouettes are within normal limits. There is no pneumothorax, pleural effusion, focal airspace consolidation or overt pulmonary edema. Mild symmetric bilateral hyperinflation. Bones of the chest appear grossly intact. IMPRESSION: Mild hyperinflation without acute process. No lobar airspace consolidation to suggest pneumonia. The above report was generated using voice recognition software. It may contain grammatical, syntax or spelling errors. Electronically signed by: Singh Pérez M.D. 03/31/2017 4:09 PM Dictated Date/Time: 03/31/2017 4:07 PM
[2017-03-31 17:13] LABS: BASO % 0.4 %; BASO ABS # 0.02 K/uL (0-0.2); EOS % 1.1 %; EOS ABS # 0.05 K/uL (0-0.5); HEMATOCRIT 37.1 % (37-47); IG# 0.01 K/uL (0.00-0.02); LYMPH % 36.2 %; LYMPH ABS # 1.66 K/uL (1.2-3.4); MEAN CELL VOLUME 84.7 fL (80-100); MEAN CORPUSCULAR HEMOGLOBIN 27.4 pg (25-34); MEAN CORPUSCULAR HGB CONC 32.3 g/dl (32-36); MEAN PLATELET VOLUME 9.6 fL (7.4-10.4); MONO % 11.1 %; MONO ABS # 0.51 K/uL (0.11-0.59); NEUT ABS # 2.33 K/uL (1.4-6.5); PLATELET COUNT 278 K/uL (130-400); RED CELL DISTRIBUTION WIDTH CV 14.7 % (11.5-14.5); WHITE BLOOD COUNT 4.58 K/uL (4.8-10.8)
[2017-03-31 17:42] LABS: BLOOD UREA NITROGEN 14 mg/dl (7-18); CALCIUM 9.1 mg/dl (8.5-10.1); CARBON DIOXIDE 32 mmol/L (21-32); CREATININE 0.79 mg/dl (0.60-1.20); GLUCOSE 93 mg/dl (70-99); POTASSIUM 3.7 mmol/L (3.5-5.1); SODIUM 135 mmol/L (136-145)
== END | disposition home or self-care (01) ==
LOC: C.RAD1850 15:30
PROVIDERS: ATTEND Nurse Practitioner Family
DX: J45.909 Unspecified asthma, uncomplicated (principal); R04.0 Epistaxis

== ENCOUNTER 2017-04-30 14:52 | Emergency (ER) | payer OTHER ==
[~2017-04-30] VITALS: Ht 172.7 cm; Wt 68.5 kg
[~2017-04-30 14:52] MED LIST changes: +RANI150T85 PO; -ZNTT/150 PO
[2017-04-30 14:58] VITALS: TEMP 36.9; Ht 172.7 cm; Wt 68.5 kg
[2017-04-30] MEDS ORDERED: OPTIRAY 320 IV PRN (15:45)
[2017-04-30 15:51] LABS: BASO % 0.2 %; BASO ABS # 0.01 K/uL (0-0.2); EOS % 0.8 %; EOS ABS # 0.04 K/uL (0-0.5); HEMATOCRIT 37.3 % (37-47); HEMOGLOBIN 12.4 g/dL (12.0-16.0); IG# 0.01 K/uL (0.00-0.02); LYMPH % 26.4 %; MEAN CELL VOLUME 84.2 fL (80-100); MEAN CORPUSCULAR HGB CONC 33.2 g/dl (32-36); MEAN PLATELET VOLUME 9.1 fL (7.4-10.4); MONO % 12.8 %; MONO ABS # 0.68 K/uL (0.11-0.59); NEUT % 59.6 %; NEUT ABS # 3.17 K/uL (1.4-6.5); PLATELET COUNT 231 K/uL (130-400); RED CELL DISTRIBUTION WIDTH CV 15.7 % (11.5-14.5); RED CELL DISTRIBUTION WIDTH SD 48.7 fL (36.4-46.3); WHITE BLOOD COUNT 5.31 K/uL (4.8-10.8)
[2017-04-30 16:00] LABS: INR 0.9 (0.9-1.1); PTT PATIENT 21.7 SECONDS (21.0-31.0)
[2017-04-30 16:07] LABS: ALBUMIN 3.9 gm/dl (3.4-5.0); ALT/SGPT 27 U/L (12-78); BLOOD UREA NITROGEN 15 mg/dl (7-18); CALCIUM 8.7 mg/dl (8.5-10.1); CARBON DIOXIDE 29 mmol/L (21-32); CREATININE 0.99 mg/dl (0.60-1.20); GLUCOSE 95 mg/dl (70-99); POTASSIUM 2.8 mmol/L (3.5-5.1); SODIUM 136 mmol/L (136-145)
[2017-04-30] MEDS ORDERED: BCTROWC TOP (16:11)
[2017-04-30] MEDS ORDERED: CYCL0.052 TOP (16:11)
[2017-04-30 16:12] LABS: ALKALINE PHOSPHATASE 50 U/L (45-117); AST/SGOT 20 U/L (15-37); CKMB 0.6 ng/ml (0.5-3.6); TOTAL PROTEIN 7.1 gm/dl (6.4-8.2)
--- NOTE | 2017-04-30 16:43 | DIAGNOSTIC IMAGING REPORT ---
(CHEST FOR PE) ANGIO WITH CT DOSE: 180.29 mGy.cm HISTORY: Chest pain dyspnea TECHNIQUE: Multiaxial CT images of the chest were performed following the intravenous administration of contrast to evaluate the pulmonary arteries. Maximal intensity projection images were also obtained. A dose lowering technique was utilized adhering to the principles of ALARA. COMPARISON STUDY: None. FINDINGS: There is a normal caliber thoracic aorta with no evidence for dissection. There is no evidence for pulmonary embolus. No pleural effusions. No pneumothorax. The liver and spleen are unremarkable. No mediastinal or hilar lymphadenopathy. The central airways are patent. The lungs are clear. Right hepatic lobe cyst. IMPRESSION: No evidence for pulmonary embolus. Lungs are clear. The above report was generated using voice recognition software. It may contain grammatical, syntax or spelling errors. Electronically signed by: Bryan Kitchen M.D. 04/30/2017 4:41 PM Dictated Date/Time: 04/30/2017 4:39 PM
[2017-04-30] MEDS ORDERED: POTASSIUM CHLORIDE 10 MEQ TABCR PO STA (16:57)
--- NOTE | 2017-04-30 16:59 | EMERGENCY ROOM VISIT NOTE ---
History Report prepared by Sherie: Petty Welch Under the Supervision of: Dr. Evan Mason D.O. First contact with patient: 15:05 Chief Complaint: SHORTNESS OF BREATH Stated Complaint: SOB,ASTHMATIC BRONCHITIS SINCE 03/[address] [facility] Nursing Triage Summary: Pt to triage in . Pt c/o "shortness of breath and tightness in my lungs, I'm limited because of my breath, even talking makes me shortness of breath that's been getting worse since I stopped my prednisone". Asthmatic bronchitis. March History of Present Illness The patient is a 52 year old female who presents to the Emergency Room with complaints of worsening SOB starting 2 days ago. The patient was sent to the ED by her PCP. She has a history of asthmatic bronchitis. She has had SOB for the past 2 months. She has been on antibiotics and prednisone in the past. She notes that as the prednisone was tapered, her SOB started worsening again. She reports difficulty doing her daily activities because of the SOB. She has been using her inhalers to no significant relief. She reports tightness in her lungs and cough. She denies any rhinorrhea, fever, or sore throat. She notes that she is often tachycardic. She is having pain in her feet which is normal for her. She has a history of fibromyalgia, orthostatic hypotension, and breast cancer. Source of History: patient Onset: 2 days ago Position: other (global) Quality: other (SOB) Timing: worsening Modifying Factors (Relieving): other (prednisone) Associated Symptoms: + cough, No fevers, No sorethroat Review of Systems See HPI for pertinent positives & negatives. A total of 10 systems reviewed and were otherwise negative. Past Medical & Surgical Medical Problems: (1) Breast CA (2) Chronic migraine (3) Fibromyalgia (4) Irritable bowel syndrome (5) Orthostatic hypotension Surgical Problems: (1) History of breast reconstruction (2) History of mastectomy, total Family History FH: cancer FH: diabetes mellitus FH: gallbladder disease FH: heart disease FH: hypertension FH: kidney disease FH: seizures Social History Smoking Status: Never Smoker Alcohol Use: occasionally Marital Status: Housing Status: lives with family Occupation Status: unemployed Current/Historical Medications Scheduled Calcium W/ Vitamins D & K (Viactiv), 1 TAB PO BID Cetirizine (Zyrtec), 10 MG PO DAILY Cyclosporine (Ophth) (Restasis), 1 DOSE TOP UD Duloxetine Hcl (Cymbalta), 60 MG PO BID Esomeprazole Magnesium (Nexium), 40 MG PO BID Etodolac (Etodolac), 500 MG PO BID Fexofenadine Hcl (Alice Allergy), 180 MG PO DAILY Melatonin (Gnp Melatonin Maximum Str), 5 MG PO HS Methylphenidate Hcl (Concerta), 1 TAB PO QAM Montelukast Sodium (Singulair), 10 MG PO QPM Multivitamin (Multivitamin), 1 TAB PO QAM Mupirocin (Bactroban 2% Oint), 1 APPLN TOP UD Polyethylene Glycol 3350 (Miralax), 1 DOSE PO BID Pregabalin (Lyrica), 100 MG PO BID Probiotic Product (Probiotic Colon Support), 1 TAB PO BID Ranitidine (Zantac), 150 MG PO TID Topiramate (Topamax), 2 TABS PO BID Scheduled PRN Albuterol Hfa (Ventolin Hfa), 2-4 PUFFS INH Q6H PRN for SOB/Wheezing Alprazolam (Xanax), 0.5-1 MG PO BID PRN for Anxiety Frypgzhgas-Qoklqeglzbhvl-Mekmb (Fioricet), 1-2 TAB PO Q4 PRN for Pain Fluticasone Propionate (Flovent Hfa), 2 PUFFS INH BID PRN for Shortness of Breath Hydrochlorothiazide (Hctz), 25 MG PO QPM PRN for FLUID RETENTION Hydrocodone/Acetaminophen 10MG/325MG ([place] 10MG/325MG), 1 TAB PO DAILY PRN for Pain Pseudoephedrine Hcl (Pseudoephedrine Hcl), 120 MG PO DAILY PRN for Nasal Congestion Spironolactone (Aldactone), 50 MG PO QAM PRN for FLUID RETENTION Sumatriptan Succinate (Imitrex Statdose), 0.5 ML INJ PRN PRN for UD Tizanidine (Zanaflex), 4 MG PO TID PRN for Muscle Spasms Tramadol (Ultram), 1-2 TABS PO TID PRN for Pain Allergies Coded Allergies: Dried Fruit (Verified Allergy, Mild, R/T SULFitES-MIGRAINES,NAUSEA AND VOMITING, 04/30/17) Latex1 -Allergic Contact Dermititis (Verified Allergy, Mild, SKIN IRRITATION, 04/30/17) Sulfites (Verified Allergy, Mild, MIGRAINES, N/V, FLUID RETENTION, 04/30/17 ) ALL VINEGARS Vinegar (Verified Allergy, Unknown, ALLERGY TO BALSAMIC VINEGAR-SULFITES- MIGRAINES,N AND V, 04/30/17) Sulfa Antibiotics (Verified Adverse Reaction, Intermediate, Acute Kidney Failure, 04/30/17) "SULFA = claims caused kidney issues=beginning of failure" Physical Exam Vital Signs Date Time Temp Pulse Resp B/P (MAP) Pulse Ox O2 Delivery O2 Flow Rate FiO2 04/30/17 15:17 105/63 100 Room Air 04/30/17 14:58 36.9 115 26 90/62 100 Room Air Physical Exam CONSTITUTIONAL/VITAL SIGNS: Reviewed / noted above. GENERAL: Non-toxic in appearance. INTEGUMENTARY: Warm, dry, and [place]. HEAD: Normocephalic. EYES: without scleral icterus or trauma. ENT/OROPHARYNX: clear and moist. LYMPHADENOPATHY/NECK: Is supple without lymphadenopathy or meningismus. RESPIRATORY: Lungs clear and equal. CARDIOVASCULAR: Regular rate and rhythm. GI/ABDOMEN: Soft and nontender. No organomegaly or pulsatile mass. No rebound or guarding. Normal bowel sounds. EXTREMITIES: Warm and well perfused. BACK: No CVA tenderness. NEUROLOGICAL: Intact without focal deficits. PSYCHIATRIC: normal affect. MUSCULOSKELETAL: Normally developed with good muscle tone. Medical Decision & Procedures ER Provider Diagnostic Interpretation: Radiology results as stated below per my review and radiologist interpretation: (CHEST FOR PE) ANGIO WITH CT DOSE: 180.29 mGy.cm HISTORY: Chest pain dyspnea TECHNIQUE: Multiaxial CT images of the chest were performed following the intravenous administration of contrast to evaluate the pulmonary arteries. Maximal intensity projection images were also obtained. A dose lowering technique was utilized adhering to the principles of ALARA. COMPARISON STUDY: None. FINDINGS: There is a normal caliber thoracic aorta with no evidence for dissection. There is no evidence for pulmonary embolus. No pleural effusions. No pneumothorax. The liver and spleen are unremarkable. No mediastinal or hilar lymphadenopathy. The central airways are patent. The lungs are clear. Right hepatic lobe cyst. IMPRESSION: No evidence for pulmonary embolus. Lungs are clear. The above report was generated using voice recognition software. It may contain grammatical, syntax or spelling errors. Electronically signed by: Bryan Kitchen M.D. 04/30/2017 4:41 PM Dictated Date/Time: 04/30/2017 4:39 PM Laboratory Results 04/30/17 15:40 Red Blood Count 4.43, Mean Corpuscular Volume 84.2, Mean Corpuscular Hemoglobin 28.0, Mean Corpuscular Hemoglobin Concent 33.2, Mean Platelet Volume 9.1, Neutrophils (%) (Auto) 59.6, Lymphocytes (%) (Auto) 26.4, Monocytes (%) (Auto) 12.8, Eosinophils (%) (Auto) 0.8, Basophils (%) (Auto) 0.2, Neutrophils # (Auto ) 3.17, Lymphocytes # (Auto) 1.40, Monocytes # (Auto) 0.68, Eosinophils # (Auto ) 0.04, Basophils # (Auto) 0.01 04/30/17 15:40 Test 04/30/17 15:40 White Blood Count 5.31 K/uL (4.8-10.8) Red Blood Count 4.43 M/uL (4.2-5.4) Hemoglobin 12.4 g/dL (12.0-16.0) Hematocrit 37.3 % (37-47) Mean Corpuscular Volume 84.2 fL (80-100) Mean Corpuscular Hemoglobin 28.0 pg (25-34) Mean Corpuscular Hemoglobin Concent 33.2 g/dl (32-36) Platelet Count 231 K/uL (130-400) Mean Platelet Volume 9.1 fL (7.4-10.4) Neutrophils (%) (Auto) 59.6 % Lymphocytes (%) (Auto) 26.4 % Monocytes (%) (Auto) 12.8 % Eosinophils (%) (Auto) 0.8 % Basophils (%) (Auto) 0.2 % Neutrophils # (Auto) 3.17 K/uL (1.4-6.5) Lymphocytes # (Auto) 1.40 K/uL (1.2-3.4) Monocytes # (Auto) 0.68 K/uL (0.11-0.59) Eosinophils # (Auto) 0.04 K/uL (0-0.5) Basophils # (Auto) 0.01 K/uL (0-0.2) RDW Standard Deviation 48.7 fL (36.4-46.3) RDW Coefficient of Variation 15.7 % (11.5-14.5) Immature Granulocyte % (Auto) 0.2 % Immature Granulocyte # (Auto) 0.01 K/uL (0.00-0.02) Prothrombin Time 9.8 SECONDS (9.0-12.0) Prothromb Time International Ratio 0.9 (0.9-1.1) Activated Partial Thromboplast Time 21.7 SECONDS (21.0-31.0) Partial Thromboplastin Ratio 0.8 Anion Gap 8.0 mmol/L (3-11) Est Creatinine Clear Calc Drug Dose 68.6 ml/min Estimated GFR () 77.0 Estimated GFR (Non- 66.4 BUN/Creatinine Ratio 14.8 (10-20) Calcium Level 8.7 mg/dl (8.5-10.1) Total Bilirubin 0.3 mg/dl (0.2-1) Aspartate Amino Transf (AST/SGOT) 20 U/L (15-37) Alanine Aminotransferase (ALT/SGPT) 27 U/L (12-78) Alkaline Phosphatase 50 U/L (45-117) Total Creatine Kinase 77 U/L (26-192) Creatine Kinase MB 0.6 ng/ml (0.5-3.6) Creatine Kinase MB Ratio 0.8 (0-3.0) Troponin I < 0.015 ng/ml (0-0.045) Total Protein 7.1 gm/dl (6.4-8.2) Albumin 3.9 gm/dl (3.4-5.0) Globulin 3.2 gm/dl (2.5-4.0) Albumin/Globulin Ratio 1.2 (0.9-2) Laboratory results as stated above per my review. ECG Per My Interpretation Indication: SOB/dyspnea Rate (beats per minute): 89 Rhythm: normal sinus Findings: no ectopy, other (no ST elevation) ED Course 1515: Previous medical records were reviewed. The patient was evaluated in room A3. A complete history and physical examination was performed. 1657: Potassium Chloride 60 meq PO. 1659: On reevaluation, the patient is resting comfortably. I discussed the results and findings with the patient. She verbalized agreement of the treatment plan. She was discharged home. Medical Decision the differential was considered includes acute myocardial infarction, acute coronary syndrome, myocarditis, pericarditis, pericardial effusions /tamponad, esophageal perforation, pulmonary embolism, pneumonia, pneumothorax, cardiomyopathy, congestive heart, anemia , COPD/asthma exacerbation. This is a 52-year-old female who presents to the ED with a chief complaint of shortness of breath. The patient states that she started having symptoms in late February. She states that her symptoms have persisted. This is despite having been on 2 courses of prednisone as well as a 15 day course of doxycycline. She just finished her last tapering course of prednisone. The patient reports shortness of breath, tingling in the limbs, lightheadedness. Her symptoms have worsened over the past 2 days. She states that she has follow -up next week with her PCP. She contacted her PCP today and they referred her here. The patient's initial blood pressure was noted as 90/62 with a heart rate of 115. The patient states that her heart rate normally is in the high 90s or low 100s. She has been using albuterol as well. The patient's blood pressure when I saw her was 105/63 with a heart rate of 106 with 100% oxygen saturations on room air. EKG was done after this and revealed a normal sinus rhythm at a rate of 89. No acute injury or ectopy. CBC is normal, potassium was 2.8, chemistry panel was otherwise unremarkable, troponin is negative and a CT scan of the chest was negative for acute disease. The patient was treated with potassium orally 60 mEq. She is felt to be stable for discharge and outpatient follow-up with her PCP. Medication Reconcilliation Current Medication List: was personally reviewed by me Blood Pressure Screening Patient's blood pressure: Normal blood pressure Blood pressure disposition: Did not require urgent referral Impression Primary Impression: Acute dyspnea Scribe Attestation The scribe's documentation has been prepared under my direction and personally reviewed by me in its entirety. I confirm that the note above accurately reflects all work, treatment, procedures, and medical decision making performed by me. Departure Information Dispostion Home / Self-Care Referrals Nellie Morataya MD (PCP) Patient Instructions My [facility] Additional Instructions Follow-up with your doctor for further care and evaluation in 1-2 days. Return to the emergency department for worsening or new symptoms or any concerns. You have been examined and treated today on an emergency basis only. This is not a substitute for, or an effort to provide, complete comprehensive medical care. It is impossible to recognize and treat all injuries or illnesses in a single emergency department visit. It is therefore important that you follow up closely with your doctor. Call as soon as possible for an appointment.
[2017-04-30 17:25] VITALS: BP 97/63; PULSE 98; O2SAT 100
== END 2017-04-30 17:26 | disposition home or self-care (01) ==
LOC: C.EDB 14:57 → C.EDA 17:26
DX: R06.00 Dyspnea, unspecified (principal); D49.3 Neoplasm of unspecified behavior of breast; I95.9 Hypotension, unspecified; M79.7 Fibromyalgia; Z83.3 Family history of diabetes mellitus; Z82.49 Family history of ischemic heart disease and other diseases of the circulatory system; Z82.0 Family history of epilepsy and other diseases of the nervous system

== ENCOUNTER → 2017-05-26 | Outpatient (CLI) | payer OTHER ==
[~2017-05-26] MED LIST changes: +BCTROWC TOP; +CYCL0.052 TOP; -ETOD500T95 PO; +POTA10CA28 PO; -RANI150T85 PO; -RANI1TAB77 PO
[2017-05-26 13:17] LABS: BASO % 0.4 %; BASO ABS # 0.02 K/uL (0-0.2); EOS % 0.7 %; EOS ABS # 0.04 K/uL (0-0.5); HEMATOCRIT 40.1 % (37-47); IG# 0.01 K/uL (0.00-0.02); LYMPH % 22.4 %; LYMPH ABS # 1.25 K/uL (1.2-3.4); MEAN CELL VOLUME 85.5 fL (80-100); MEAN CORPUSCULAR HEMOGLOBIN 27.7 pg (25-34); MEAN CORPUSCULAR HGB CONC 32.4 g/dl (32-36); MEAN PLATELET VOLUME 9.2 fL (7.4-10.4); MONO % 8.1 %; MONO ABS # 0.45 K/uL (0.11-0.59); NEUT % 68.2 %; PLATELET COUNT 257 K/uL (130-400); RED CELL DISTRIBUTION WIDTH CV 15.9 % (11.5-14.5); RED CELL DISTRIBUTION WIDTH SD 49.5 fL (36.4-46.3); WHITE BLOOD COUNT 5.57 K/uL (4.8-10.8)
[2017-05-26 15:45] LABS: POTASSIUM 3.5 mmol/L (3.5-5.1)
== END | disposition home or self-care (01) ==
LOC: C.LABBC 11:15
PROVIDERS: ATTEND Family Medicine
DX: E87.6 Hypokalemia (principal); R71.0 Precipitous drop in hematocrit

== ENCOUNTER → 2017-07-11 | Outpatient (CLI) | payer OTHER ==
[2017-07-11 13:39] LABS: HEMATOCRIT 38.8 % (37-47); HEMOGLOBIN 12.6 g/dL (12.0-16.0); MEAN CELL VOLUME 85.8 fL (80-100); MEAN CORPUSCULAR HEMOGLOBIN 27.9 pg (25-34); MEAN CORPUSCULAR HGB CONC 32.5 g/dl (32-36); MEAN PLATELET VOLUME 9.4 fL (7.4-10.4); PLATELET COUNT 299 K/uL (130-400); RED CELL DISTRIBUTION WIDTH CV 14.6 % (11.5-14.5); RED CELL DISTRIBUTION WIDTH SD 45.4 fL (36.4-46.3); WHITE BLOOD COUNT 5.06 K/uL (4.8-10.8)
[2017-07-11 14:21] LABS: POTASSIUM 3.5 mmol/L (3.5-5.1)
== END | disposition home or self-care (01) ==
LOC: C.LAB1850 12:09
PROVIDERS: ATTEND Physician Assistant
DX: E87.6 Hypokalemia (principal); N92.0 Excessive and frequent menstruation with regular cycle

== ENCOUNTER → 2017-10-17 | Outpatient (CLI) | payer OTHER | END | disposition home or self-care (01) | LOC: C.PAPS 10:52 | PROVIDERS: ATTEND Obstetrics & Gynecology | DX: Z12.4 Encounter for screening for malignant neoplasm of cervix (principal) ==